=== PATIENT | female | born 1990 | race Caucasian/White ===

== ENCOUNTER 2017-11-04 22:48 | Outpatient (CLI) | payer BC, MEDICAID ==
[2017-11-04 23:24] LABS: APPEARANCE,URINE CLEAR; BILIRUBIN,URINE NEGATIVE (NEGATIVE); GLUCOSE, URINE NEGATIVE (NEGATIVE); KETONES,URINE NEGATIVE (NEGATIVE); LEUKOCYTE ESTERASE,URINE NEGATIVE (NEGATIVE); NITRITE,URINE NEGATIVE (NEGATIVE); PROTEIN,URINE NEGATIVE (NEGATIVE); URINE SPECIFIC GRAVITY 1.009; UROBILINOGEN,URINE NEGATIVE mg/dL (<2.0)
[2017-11-04 23:42] LABS: URINE BARBITURATES SCREEN NEGATIVE; URINE METHADONE SCREEN NEGATIVE; URINE OPIATES LOW NEGATIVE; URINE PHENCYCLIDINE SCREEN NEGATIVE
== END 2017-11-05 00:43 | disposition home or self-care (01) ==
LOC: LC 22:48
PROVIDERS: ATTEND Obstetrics & Gynecology
PROC: 4A1HXCZ Monitoring of Products of Conception, Cardiac Rate, External Approach (ICD-10-PCS; principal; 2017-11-04)
DX: O47.1 False labor at or after 37 completed weeks of gestation (principal); Z3A.39 39 weeks gestation of pregnancy
CPT/HCPCS: 59025; 80307; 81005

== ENCOUNTER 2017-11-05 10:33 | Inpatient (IN) | payer BC, MEDICAID ==
--- NOTE | 2017-11-05 10:40 | Non Stress Test Report ---
Non Stress Test Datetime Report Generated by CPN: 11/05/2017 10:40 DEMOGRAPHIC Test Number: 1 EGA NST: 39.2 INDICATION Indication for Study: Ordered by Provider VITAL SIGNS Temperature - NST: 98.4 Pulse - NST: 86 RESP - NST: 16 NBPSYS NST: 120 NBPDIA NST: 54 URINE RESULTS Urine Protein, NST: Negative Urine Ketones - NST: Negative Urine Glucose - NST: Negative Urine Blood - NST: Negative MONITORING Monitor Explained: Monitor Explained; Test Explained; Patient Verbalized Understanding Time on Monitor: 11/04/2017 23:04 Time off Monitor: 11/04/2017 23:26 NST Duration: 22 NST INTERVENTIONS NST Interventions: None Physician Notified NST: Dr. Barry BABY A: [id number] BABY A Movement : Present Contraction Frequency : 4 FHR Baseline : 125 Accelerations : 15X15 Decelerations : None Variability : Moderate 6-25bpm NST Review: Meets Criteria for Reactive NST NST Review and Verified By : B Carnes, RN NST Results: Reactive NST REPORT Report Trigger: Send Report
[2017-11-05] MEDS ORDERED: PENICILLIN G-K 5 MILLION UNIT VIAL ONE ×2 (11:03→14:40)
[2017-11-05] MEDS ORDERED: LIDOCAINE 1% INJ-PF (10 MG/ML) 30 ML SDV ONE (11:03)
[2017-11-05] MEDS ORDERED: OXYTOCIN/NORMAL SALINE 20 UNIT/1,000 ML RTUINJ ONE (11:03)
[2017-11-05] MEDS ORDERED: MISOPROSTOL 0.2 MG TABLET ONE (11:03)
[2017-11-05 11:08] LABS: APPEARANCE,URINE SLIGHTLY-CLOUDY; BILIRUBIN,URINE NEGATIVE (NEGATIVE); GLUCOSE, URINE NEGATIVE (NEGATIVE); KETONES,URINE NEGATIVE (NEGATIVE); LEUKOCYTE ESTERASE,URINE TRACE (NEGATIVE); NITRITE,URINE NEGATIVE (NEGATIVE); PROTEIN,URINE NEGATIVE (NEGATIVE); URINE SPECIFIC GRAVITY 1.013; UROBILINOGEN,URINE NEGATIVE mg/dL (<2.0)
[2017-11-05] MEDS ORDERED: RINGERS SOLUTION,LACTATED 1,000 ML IV ONE (11:24)
[2017-11-05] MEDS ORDERED: RINGERS SOLUTION,LACTATED 1,000 ML IV PRN (11:24)
[2017-11-05 11:49] LABS: URINE BARBITURATES SCREEN NEGATIVE; URINE METHADONE SCREEN NEGATIVE; URINE OPIATES LOW NEGATIVE; URINE PHENCYCLIDINE SCREEN NEGATIVE
[2017-11-05 12:25] LABS: ABSOLUTE LYMPHOCYTES (AUTO) 0.8 10^3/uL (0.5-4.7); ABSOLUTE MONOCYTES (AUTO) 0.4 10^3/uL (0.1-1.4); ABSOLUTE NEUT (AUTO) 9.9 10^3/uL (1.7-8.2); BASOPHILS % (AUTO) 0.3 % (0-2); HEMATOCRIT 36.9 % (36.0-47.0); HEMOGLOBIN 12.4 g/dL (12.0-15.5); HGB HCT DIFFERENCE 0.3; LYMPHOCYTES % (AUTO) 6.8 % (13-45); MEAN CORPUSCULAR HEMOGLOBIN 28.9 pg (27.0-33.4); MEAN CORPUSCULAR HGB CONC 33.7 g/dL (32.0-36.0); MEAN CORPUSCULAR VOLUME 86 fl (80-97); MONOCYTES % (AUTO) 3.9 % (3-13); RED CELL DISTRIBUTION WIDTH 17.5 % (11.5-14.0); WHITE BLOOD COUNT 11.1 10^3/uL (4.0-10.5)
[2017-11-05] MEDS ORDERED: FENTANYL/BUPIVACAINE/NS/PF 200 MCG/100 ML RTUINJ EPI ONE (12:33)
[2017-11-05] MEDS ORDERED: EPHEDRINE SULFATE INJ 50 MG/1 ML AMPULE ONE (12:33)
[2017-11-05] MEDS ORDERED: BUPIVACAINE HCL 0.25 % INJ/PF (2.5 MG/1 ML) 30 ML VIAL ONE (12:33)
[2017-11-05] MEDS ORDERED: PHENYLEPHRINE HCL INJ/PF 10 MG/1 ML SDV ONE (12:33)
[2017-11-05] MEDS ORDERED: FENTANYL CITRATE INJ/PF 100 MCG/2 ML AMPUL ONE (12:33)
--- NOTE | 2017-11-05 15:35 | Warning Signs in Babies ---
VOD Warning Signs Datetime Report Generated by [facility]: 11/05/2017 15:35 VOD#608 -Warning Signs in Babies: Viewed with Parent(s)/Family (11/04/2017 22:54:Latia Lozano RN)
[2017-11-05] MEDS ORDERED: NA PHOS,M-B/NA PHOS,DI-BA (ADULT) 133 ML ENEMA PR PRN (15:39)
[2017-11-05] MEDS ORDERED: MAGNESIUM HYDROXIDE SUSP 30 ML UDCUP PO PRN (15:39)
[2017-11-05] MEDS ORDERED: PSEUDOEPHEDRINE HCL 30 MG TABLET PO PRN (15:39)
[2017-11-05] MEDS ORDERED: PROMETHAZINE HCL 25 MG TABLET PO PRN (15:39)
[2017-11-05] MEDS ORDERED: DIPHENHYDRAMINE HCL 25 MG CAPSULE PO PRN (15:39)
[2017-11-05] MEDS ORDERED: DIPH/PERTUSS(ACELL)/TETANUS VAC/PF 0.5 ML SYR (>=10YO) IM PRN (15:39)
[2017-11-05] MEDS ORDERED: GLYCERIN/WITCH HAZEL LEAF 1 EACH MED..PAD TP PRN (15:39)
[2017-11-05] MEDS ORDERED: MEASLES,MUMPS&RUBELLA VACC/PF 0.5 ML VIAL SUBCUT PRN (15:39)
[2017-11-05] MEDS ORDERED: BENZOCAINE/MENTHOL AEROSOL SPRAY 56 ML TOP PRN (15:39)
[2017-11-05] MEDS ORDERED: OXYTOCIN/NORMAL SALINE 20 UNIT/1,000 ML RTUINJ IV PRN (15:39)
[2017-11-05] MEDS ORDERED: PROMETHAZINE HCL INJ 25 MG/1 ML VIAL IV PRN (15:39)
[2017-11-05] MEDS ORDERED: ACETAMINOPHEN 650 MG SUPP.RECT PR PRN (15:39)
[2017-11-05] MEDS ORDERED: PROMETHAZINE HCL 25 MG SUPP.RECT PR PRN (15:39)
[2017-11-05] MEDS ORDERED: DIBUCAINE 1% OINTMENT 28 GM TP PRN (15:39)
[2017-11-05] MEDS ORDERED: ZOLPIDEM TARTRATE 5 MG TABLET PO PRN (15:39)
--- NOTE | 2017-11-05 17:06 | Delivery Summary ---
Del Sum A-C Datetime Report Generated by CPN: 11/05/2017 17:06 DELIVERY PERSONNEL DELIVERY PERSONNEL: [id number] Delivery Doctor:: Sandra Bell CNM Labor and Delivery Nurse:: Latia Lozano RN Labor and Delivery Nurse:: EVITA Plata Music Therapy Teacher/LEAD RUBY ON RAILS DEVELOPER: Lois Jung, WRAPPER SIZER Additional Personnel: : Jessica Jordan RN MATERNAL INFORMATION Delivery Anesthesia: Epidural Medications After Delivery: Pitocin Drip 20 Units/1000ml NSS Estimated Blood Loss (ml): 350 Provider Comments: pt with increased urge bed prepared for delivery delivery of viable female apgars9/9 bulb suctioned on perinuem CHARISSE infant to abdomen tactile stimulation elicits spont cry cord clamped x2 cut by fob cord blood obtained 1st degree vaginal tear repaired under epidural right labial tear repaired in usual fashion ebl 350cc hemostasis achieved clots expelled ff!u-1 mod lochia pt bonding well with LABOR SUMMARY EDC: 11/09/2017 00:00 No. Babies in Womb: 1 Attempted: No Labor Anesthesia: Epidural LABOR INFORMATION Reason for Induction: Not Applicable Onset of Labor: 11/05/2017 06:00 Complete Dilatation: 11/05/2017 14:55 Oxytocin: N/A Group B Beta Strep: positive Antibiotics # of Doses: 2 Antibiotics Time of Last Dose: 1448 Name of Antibiotic Given: Penicillin Steroids Given: None Reason Steroids Not Administered: Not Applicable MEMBRANES Membranes Rupture Method: Spontaneous Rupture of Membranes: 11/05/2017 11:35 Length of Rupture (hr): 3.55 Amniotic Fluid Color: Clear Amniotic Fluid Amount: Small Amniotic Fluid Odor: Normal STAGES OF LABOR Stage 1 hr: 8 Stage 1 min: 55 Stage 2 hr: 0 Stage 2 min: 13 Stage 3 hr: 0 Stage 3 min: 3 Total Time in Labor hr: 9 Total Time in Labor min: 11 VAGINAL DELIVERY Episiotomy: None Laceration #1: Vaginal Laceration Extension #1: First Degree Other Laceration: Right labial Laceration Repair: Yes Sponge Count Correct: N/A Sharps Count Correct: N/A BABY A INFORMATION Infant Delivery Date/Time: 11/05/2017 15:08 Method of Delivery: Vaginal Born in Route : No : N/A Forceps: N/A Vacuum Extraction: N/A Shoulder Dystocia : Yes PRESENTATION/POSITION BABY A Presentation: Cephalic Cephalic Presentation: Vertex Vertex Position: Left Occipital Anterior Breech Presentation: N/A PLACENTA INFORMATION BABY A Placenta Delivery Time : 11/05/2017 15:11 Placenta Method of Delivery: Spontaneous Placenta Status: Delivered SCORES BABY A Heart Rate 1 min: >100 bpm Resp Effort 1 min: Good Cry Reflex Irritability 1 min: Cough or Sneeze or Pulls Away Muscle Tone 1 min: Active Motion Color 1 min: Body [place], Extremities Blue SCORE 1 MIN: 9 Heart Rate 5 min: >100 bpm Resp Effort 5 min: Good Cry Reflex Irritability 5 min: Cough or Sneeze or Pulls Away Muscle Tone 5 min: Active Motion Color 5 min: Body [place], Extremities Blue Resuscitation Effort 5 min: N/A SCORE 5 MIN: 9 INFORMATION BABY A Gestational Age at Delivery: 39.3 Gestational Status: Full Term- 39- 40.6 Weeks Outcome : Liveborn Condition : Stable Infant Sex: Female IDENTIFICATION BABY A Infant Verification Date/Time: 11/05/2017 15:22 ID Band Number: [id number] Mother's Name Verified: Yes Infant RN Verifying Infant: Gwen Castillo, RN Additional Verifying Personnel: Gwen Londono, RN WEIGHT/LENGTH BABY A Infant Birthweight (gm): 3150 Infant Weight (lb): 6 Weight (oz): 15 Infant Length (in): 19.00 Length (cm): 48.26 CORD INFORMATION BABY A No. Cord Vessels: 3 Nuchal Cord : N/A Cord Blood Taken: Yes-For Storage (Mom's Blood type +) Infant Suction: None ASSESSMENT BABY A Complications: None Physical Findings at Delivery: Within Normal Limits Infant Respirations: Appears Normal Skin to Skin: Yes Skin to Skin Time (min): 60 Offal Baler/ALS Called : No Infant Care By: Ernestina Laird RN Transferred To: Remains with Mother SIGNATURES Assignment: Kar Nicholson MD Signature: with User ID: Alice : with User ID: Alice
--- NOTE | 2017-11-05 17:36 | Admission Physical ---
Datetime Report Generated by CPN: 11/05/2017 17:36 CURRENT ADMISSION Chief Complaint: Uterine Contractions Indication for Induction: Term, Intrauterine Admit Plan: Admit to Unit Admit Plan: Admit to Unit; Initiate Labor Protocol ALLERGIES Medication Allergies: No Medication Allergies: No Known Allergies (11/05/2017) Medication Allergies: No Known Allergies (11/04/2017) Latex: No Latex Allergies OBSTETRICAL HISTORY EDC: 11/09/2017 00:00 EDC: 11/09/2017 00:00 : 1 : 1 Para: 0 Para: 0 Term: 0 : 0 SAB: 0 IAB: 0 Ectopic: 0 Livin Cesareans: 0 VBACs: 0 Multiple Births: 0 Gestational Diabetes: No Rh Sensitization: No Incompetent Cervix: No MARY ANN: No Infertility: No ART Treatment: No Uterine Anomaly: No IUGR: No Hx Previous C/S: No Macrosomia: No Hx Loss/Stillborn: No PIH: No Hx : No Placenta Previa/Abruption: No Depression/PP Depression: Yes PTL/PROM: No Post Hemorrhage: No Current Procedures: Ultrasound Obstetrical History Comments: G1- current SEE RECORDS Alcohol: No Marijuana : No Cocaine: No Other Illicit Drugs: No Cigarettes: Former Smoker. [id number] MEDICAL HISTORY Diabetes: No Blood Transfusion: No Pulmonary Disease (Asthma, TB): No Breast Disease: No Hypertension: No System Operator Surgery: No Heart Disease: No Hosp/Surgery: No Autoimmune Disorder: No Anesthetic Complications: No Kidney Disease: No Abnormal Pap Smear: No Neuro/Epilepsy: No Psychiatric Disorders: No Other Medical Diseases: No Hepatitis/Liver Disease: No Significant Family History: No Varicosities/Phlebitis: No Trauma/Violence : No Thyroid Dysfunction: No Medical History Comments: Anemia, Depression, Anxiety INFECTIOUS HISTORY Gonorrhea: No Genital Herpes: No Chlamydia: No Tuberculosis: No Syphilis: No Hepatitis: No HIV/AIDS Exposure: No Rash or Viral Illness: No HPV: No PHYSICAL EXAM General: Normal HEENT: Normal Neurologic: Normal Thyroid: Normal Heart: Normal Lungs: Normal Breast: Normal Back: Normal Abdomen: Normal Genitourinary Exam: Normal Extremities: Normal DTRs: Normal Pelvic Type: Adequate Vital Signs: Reviewed VAGINAL EXAM Dilatation: 10 Effacement: 100 Station: 1 MEMBRANES Membranes: Ruptured Amniotic Fluid Color: Clear FETUS A EGA: 39.3 Monitoring: External US FHR- Baseline: 120 Variability: Moderate 6-25bpm Accelerations: 15X15 Decelerations: None FHR Category: Category I Presentation: Vertex Admit Comment: 26 yo edc 11/09/17 ega 39.3 unremarkable history NKDA gbs positive abdomen non tender fhts 120s and reactive uterine contractions 1-3 min spontaneous rupture of membranes- clear epidural in place al/c/+1 gbs prophylaxis x 1 next dose 1530 plan of care reviewed with pt and family anticipate PLANS FOR LABOR AND DELIVERY Pain Management: Epidural Feeding Preference: Breast Circumcision: N/A INFORMED CONSENT Assignment: Kar Nicholson MD Signature: with User ID: Alice : with User ID: Alice
[2017-11-05] MEDS: DOCUSATE SODIUM 100 MG CAPSULE PO SCH (17:43)
[2017-11-05] MEDS: FERROUS SULFATE 325 MG TABLET PO SCH (17:43)
[2017-11-05] MEDS ORDERED: PENICILLIN G POTASSIUM 2,500,000 UNIT in DEXTROSE 5%-WATER 50 ML IV SCH (18:42)
[2017-11-05] MEDS: IBUPROFEN 800 MG TABLET PO SCH (21:38)
[2017-11-05] MEDS: FAMOTIDINE 20 MG TABLET PO SCH (21:39)
[2017-11-06] MEDS: IBUPROFEN 800 MG TABLET PO SCH ×2 (05:10→14:55)
[2017-11-06 07:32] LABS: HEMATOCRIT 36.8 % (36.0-47.0); HEMOGLOBIN 12.4 g/dL (12.0-15.5); HGB HCT DIFFERENCE 0.4; MEAN CORPUSCULAR HEMOGLOBIN 29.1 pg (27.0-33.4); MEAN CORPUSCULAR HGB CONC 33.7 g/dL (32.0-36.0); MEAN CORPUSCULAR VOLUME 87 fl (80-97); RED BLOOD COUNT 4.26 10^6/uL (3.72-5.28); RED CELL DISTRIBUTION WIDTH 18.2 % (11.5-14.0); WHITE BLOOD COUNT 11.2 10^3/uL (4.0-10.5)
[2017-11-06 08:24] VITALS: BP 117/79
[2017-11-06] MEDS: FAMOTIDINE 20 MG TABLET PO SCH (09:26)
[2017-11-06] MEDS: DOCUSATE SODIUM 100 MG CAPSULE PO SCH (09:26)
[2017-11-06] MEDS: FERROUS SULFATE 325 MG TABLET PO SCH (09:27)
[2017-11-06] MEDS ORDERED: PRENATAL VITAMIN W DHA CAPSULE PO SCH (10:00)
[2017-11-06] MEDS ORDERED: SENNOSIDES/DOCUSATE 8.6-50 MG 1 EACH TABLET PO SCH (10:00)
--- NOTE | 2017-11-06 10:29 | PDOC PROGRESS REPORT ---
Subjective-OB Subjective: Post Delivery Day: 26 year old. Denies any needs at this time Physical Exam (OB) Vital Signs: Temp Pulse Resp BP Pulse Ox 98.0 F 81 18 117/79 100 11/06/17 08:09 11/06/17 08:09 11/06/17 08:09 11/06/17 08:09 11/06/17 08:09 Intake & Output 11/05/17 11/06/17 11/07/17 06:59 06:59 06:59 Weight 68.95 kg - PIH/Pre-Eclampsia Headache: Absent Epigastric Pain: No Visual Changes: No - Lochia Lochia Amount: Scant < 10 ml Lochia Color: Rubra/Red - Abdomen Description: Tender, Soft Hernia Present: No Bowel Sounds: Normoactive Flatus Presence: Present Stool: No Fundal Description: Firm Fundal Height: u/u - u/2 Objective-Diagnostic Laboratory: 11/06/17 07:01 11/05/17 11/05/17 11/05/17 10:40 12:17 12:17 WBC 11.1 H RBC 4.30 Hgb 12.4 Hct 36.9 MCV 86 MCH 28.9 MCHC 33.7 RDW 17.5 H Plt Count 237 Seg Neutrophils % 89.0 H Lymphocytes % 6.8 L Monocytes % 3.9 Eosinophils % 0.0 Basophils % 0.3 Absolute Neutrophils 9.9 H Absolute Lymphocytes 0.8 Absolute Monocytes 0.4 Absolute Eosinophils 0.0 Absolute Basophils 0.0 Urine Color YELLOW Urine Appearance SLIGHTLY-CLOUDY Urine pH 7.0 Ur Specific [place] 1.013 Urine Protein NEGATIVE Urine Glucose (UA) NEGATIVE Urine Ketones NEGATIVE Urine Blood MODERATE H Urine Nitrite NEGATIVE Ur Leukocyte Esterase TRACE H Urine WBC (Auto) 14 Urine RBC (Auto) 26 Blood Type O POSITIVE Antibody Screen NEGATIVE 11/06/17 07:01 WBC 11.2 H RBC 4.26 Hgb 12.4 Hct 36.8 MCV 87 MCH 29.1 MCHC 33.7 RDW 18.2 H Plt Count 212 Seg Neutrophils % Lymphocytes % Monocytes % Eosinophils % Basophils % Absolute Neutrophils Absolute Lymphocytes Absolute Monocytes Absolute Eosinophils Absolute Basophils Urine Color Urine Appearance Urine pH Ur Specific [place] Urine Protein Urine Glucose (UA) Urine Ketones Urine Blood Urine Nitrite Ur Leukocyte Esterase Urine WBC (Auto) Urine RBC (Auto) Blood Type Antibody Screen
--- NOTE | 2017-11-06 17:00 | PDOC PROGRESS REPORT ---
Subjective-OB Subjective: Post Delivery Day: 26 year old. Denies any needs at this time. Requesting early discharge. Physical Exam (OB) Vital Signs: Temp Pulse Resp BP Pulse Ox 98.0 F 81 18 117/79 100 11/06/17 08:09 11/06/17 08:09 11/06/17 08:09 11/06/17 08:09 11/06/17 08:09 Intake & Output 11/05/17 11/06/17 11/07/17 06:59 06:59 06:59 Weight 68.95 kg - PIH/Pre-Eclampsia Headache: Absent Epigastric Pain: No Visual Changes: No - Lochia Lochia Amount: Scant < 10 ml Lochia Color: Rubra/Red - Abdomen Description: Tender, Soft Hernia Present: No Bowel Sounds: Normoactive Flatus Presence: Present Stool: No Fundal Description: Firm Fundal Height: u/u - u/2 Objective-Diagnostic Laboratory: 11/06/17 07:01 11/06/17 07:01 WBC 11.2 H RBC 4.26 Hgb 12.4 Hct 36.8 MCV 87 MCH 29.1 MCHC 33.7 RDW 18.2 H Plt Count 212
--- NOTE | 2017-11-06 17:05 | PDOC DISCHARGE SUMMARY ---
Final Diagnosis Discharge Date: 11/06/17 - Final Diagnosis (1) Delivery normal Is this a current diagnosis for this admission?: Yes (2) Depression Is this a current diagnosis for this admission?: Yes (3) Positive GBS test Is this a current diagnosis for this admission?: Yes (4) Is this a current diagnosis for this admission?: Yes Discharge Data - Discharge Medication Home Medications: No122/Iron/Folic Acid [ Multi Tablet] 1 each PO DAILY 11/04/17 Sertraline HCl [Zoloft] 10 mg PO DAILY 11/04/17 Gestational Age: 40.1 wks Reason(s) for Admission: Onset of Labor Procedures: Ultrasound Intrapartum Procedure(s): Spontaneous Vaginal Delivery - [place] Data Baby 1 Male at 1 minute: 8 at 5 minutes: 9 Weight: 2.92 kg Home with Mother: Yes Complications: No - Diagnosis Test Laboratory: Temp Pulse Resp BP Pulse Ox 98.0 F 81 18 117/79 100 11/06/17 08:09 11/06/17 08:09 11/06/17 08:09 11/06/17 08:09 11/06/17 08:09 11/05/17 11/05/17 11/06/17 10:40 12:17 07:01 RBC 4.30 4.26 Hgb 12.4 12.4 Hct 36.9 36.8 Urine Opiates Screen NEGATIVE - Discharge information/Instructions Discharge Activity: Activity As Tolerated, Balance Activity w/Rest, Pelvic Rest , Slowly Increase Activity, No tub bath Discharge Diet: Regular Disposition: HOME, SELF-CARE Follow up with: [facility] in: 4, Weeks
== END 2017-11-06 18:20 | disposition home or self-care (01) | DRG 775 ==
LOC: LC 10:33 → LR 11:02 → 2S 17:25
PROVIDERS: ADMIT Obstetrics & Gynecology Gynecology; ATTEND Obstetrics & Gynecology Gynecology
PROC: 10E0XZZ Delivery of Products of Conception, External Approach (ICD-10-PCS; principal; 2017-11-05)
PROC: 0HQ9XZZ Repair Perineum Skin, External Approach (ICD-10-PCS; 2017-11-05)
DX: O99.824 Streptococcus B carrier state complicating childbirth (principal); O99.344 Other mental disorders complicating childbirth; O99.02 Anemia complicating childbirth; D64.9 Anemia, unspecified; F41.8 Other specified anxiety disorders; O70.0 First degree perineal laceration during delivery; Z3A.39 39 weeks gestation of pregnancy; Z37.0 Single live birth
CPT/HCPCS: 36415; 80307; 81001; 85025; 85027; 86592; 86850; 86900; 86901; J2370; J2540; J2590; J3010; J3490

== ENCOUNTER 2020-09-27 05:49 | Day surgery (SDC) | payer BC, MEDICAID ==
[2020-09-22 09:50] LABS: HEMATOCRIT 40.4 % (36.0-47.0); HEMOGLOBIN 14.3 g/dL (12.0-15.5); MEAN CORPUSCULAR HEMOGLOBIN 32.3 pg (27.0-33.4); MEAN CORPUSCULAR HGB CONC 35.3 g/dL (32.0-36.0); MEAN CORPUSCULAR VOLUME 92 fl (80-97); PLATELET COUNT 233 10^3/uL (150-450); RED BLOOD COUNT 4.41 10^6/uL (3.72-5.28); WHITE BLOOD COUNT 4.4 10^3/uL (4.0-10.5)
[~2020-09-27 05:49] MED LIST: CEFAZOLIN 1 GM/D5W RTU 1 GM/50 ML RTUPB IV PRN; LACTATED RINGERS 1000 ML IV PRN; LIDOCAINE 0.5% INJ-PF (5 MG/ML) 50 ML SDV SUBCUT PRN
[2020-09-27] MEDS ORDERED: CEFAZOLIN 1 GM/D5W RTU 1 GM/50 ML RTUPB IV ONE (06:23)
[2020-09-27] MEDS ORDERED: SCOPOLAMINE HYDROBROMIDE 1.5 MG PATCH.TD72 ONE (06:41)
[2020-09-27] MEDS ORDERED: FENTANYL CITRATE INJ/PF 100 MCG/2 ML AMPUL ONE (06:42)
[2020-09-27] MEDS ORDERED: EPHEDRINE SULFATE INJ 50 MG/1 ML AMPULE ONE (06:43)
[2020-09-27] MEDS ORDERED: DEXAMETHASONE SOD PHOSPHATE INJ 4 MG/1 ML VIAL ONE (06:43)
[2020-09-27] MEDS ORDERED: ONDANSETRON HCL INJ/PF 4 MG/2 ML SDV ONE (06:43)
[2020-09-27] MEDS ORDERED: MIDAZOLAM 2 MG/2 ML INJ ONE (06:43)
[2020-09-27] MEDS ORDERED: PROPOFOL INJ 200 MG/20 ML VIAL IV ONE (06:43)
[2020-09-27] MEDS ORDERED: KETOROLAC TROMETHAMINE 60 MG/2 ML SDV ONE (06:44)
[2020-09-27] MEDS: MIDAZOLAM 2 MG/2 ML INJ ONE ×2 (06:45→06:55)
[2020-09-27] MEDS ORDERED: LIDOCAINE 2% INJ (20 MG/ML) 20 ML MDV ONE (06:46)
[2020-09-27] MEDS ORDERED: SCOPOLAMINE HYDROBROMIDE 1.5 MG PATCH.TD72 TD ONE (07:00)
[2020-09-27] MEDS ORDERED: MIDAZOLAM 2 MG/2 ML INJ IV ONE (07:00)
[2020-09-27] MEDS ORDERED: LIDOCAINE 1% INJ-PF (10 MG/ML) 30 ML SDV ONE (07:04)
[2020-09-27] MEDS ORDERED: OXYCODONE-ACETAMINOPHEN 5-325 MG TABLET PO PRN ×3 (07:45→08:43)
[2020-09-27] MEDS ORDERED: MORPHINE SULFATE 10 MG/ML INJ IV PRN (07:45)
[2020-09-27] MEDS ORDERED: DIPHENHYDRAMINE HCL 50 MG/ML VIAL IV PRN (07:45)
[2020-09-27] MEDS ORDERED: PROMETHAZINE HCL INJ 25 MG/1 ML VIAL IV PRN ×2 (07:45)
[2020-09-27] MEDS ORDERED: MEPERIDINE HCL/PF INJ 25 MG/1 ML DISP.SYRIN IV PRN (07:45)
[2020-09-27] MEDS ORDERED: FENTANYL CITRATE INJ/PF 100 MCG/2 ML AMPUL IV PRN ×3 (07:45)
[2020-09-27] MEDS ORDERED: MICROFIBRILLAR COLLAGEN 1 GM PACK ONE (08:10)
[2020-09-27] MEDS: MEPERIDINE HCL/PF INJ 25 MG/1 ML DISP.SYRIN ONE ×2 (08:30→08:40)
--- NOTE | 2020-09-27 08:30 | Discharge Summary ---
Discharge Summary (SDC) - Discharge Final Diagnosis: Large right breast fibroadenoma Date of Surgery: 09/27/20 Discharge Date: 09/27/20 Condition: Good Treatment or Instructions: Wear supportive bra; return to [place] [facility] in 2 weeks; take Motrin, Tylenol or Toradol as needed pain. No heavy lifting. Referrals: HERON DUNAWAY MD [Primary Care Provider] - Discharge Diet: As Tolerated Discharge Activity: Other - No heavy lifting greater than 15 pounds Home Care Assistance: None Needed Report the Following to Your Physician Immediately: Shortness of Breath, Increase in Pain, Fever over 101 Degrees, Unusual Bleeding
--- NOTE | 2020-09-27 08:34 | Operative Report ---
Operative Report DATE OF SURGERY: 09/27/20 PREOPERATIVE DIAGNOSIS: Large right breast fibroadenoma POSTOPERATIVE DIAGNOSIS: Same OPERATION: 1. Focused ultrasound of the right breast. 2. Ultrasound directed right breast open excisional biopsy SURGEON: ROBERT BULL SANITARIAN INSPECTOR: GANGA WAGNER ANESTHESIA: GA TISSUE REMOVED OR ALTERED: Large right breast fibroadenoma COMPLICATIONS: None ESTIMATED BLOOD LOSS: Scant INTRAOPERATIVE FINDINGS: See below PROCEDURE: The patient was seen in the preop holding area where the right breast was marked. She was then taken to the main operating room general anesthesia was induced. Right arm was abducted, right breast and chest wall prepped and draped in sterile fashion. Surgical plan and surgical timeout were conducted. Focused ultrasound of the right breast demonstrated a large right breast fibroadenoma at the 6 o'clock position. Marking was made on the skin along the infraareolar border. The skin was anesthetized with 1% plain lidocaine. A curvilinear incision was made along the areolar border from 4:00 to 8 o'clock position. Using a combination of blunt, and careful electrocautery dissection, the fibroadenoma was mobilized from the surrounding breast tissue. Because of its large size, it was partially transected with knife blade. The fibroadenoma was then removed in its entirety, and measured at 9 cm long by 4 cm wide. It was sent to pathology labeled fibroadenoma for permanent analysis. Wound was checked for bleeding. The dominant vascular pedicle to the fibroadenoma was oversewed with a 3-0 Vicryl suture. Small bleeders were cauterized as encountered during the dissection. We irrigated the cavity carefully, check for any mechanical bleeding and there was none. Avitene was placed in the recesses of the wound, and the wound closed with five 2-0 and 3-0 Vicryl, Dermabond glue. Patient tolerated procedure well, extubated, taken recovery room stable condition. LIANA Ibarra assisted with exposure, wound closure. Of note intraoperative ultrasonography was documented with photographs retained for the record and taped into the patient's paper chart under progress note section.
[2020-09-27] MEDS ORDERED: OXYCODONE-ACETAMINOPHEN 5-325 MG TABLET ONE (08:58)
[2020-09-27 13:38] VITALS: BP 110/74
--- OUTSIDE RECORDS SUMMARY | 2020-09-28 17:50 | XMS REPORT ---
:1990 Author Organization [facility] Address [facility] [address] [place] [address] Care Team Providers Name Role Phone PATRICK CHATMAN Attending Clinician Unavailable Allergies, Adverse Reactions, Alerts This patient has no known allergies or adverse reactions. Medications This patient has no known medications. Problems This patient has no known problems. Procedures This patient has no known procedures. Results This patient has no known results. Encounters Start End Encounter Admission Attending Care Care Encounter Date/Time Date/Time Type Type Clinicians Facility Department ID 2017-03-31 2017-03-31 Outpatient VENESSA HENDRICKS [facility] [id number] 00:00:00 00:00:00 Social History This patient has no known social history. Vital Signs This patient has no known vital signs.
== END 2020-09-27 10:20 | disposition home or self-care (01) ==
LOC: OROUT 05:49
PROVIDERS: ATTEND Surgery
DX: D24.1 Benign neoplasm of right breast (principal); Z87.891 Personal history of nicotine dependence; Z03.818 Encounter for observation for suspected exposure to other biological agents ruled out
CPT/HCPCS: 36415; 85027; 81025; 19120; U0003; J2250; J3490 ×3; J0690; J1100; J1885; J3010; J2175; J2405; J2704; C9803; 400; 87635